=== PATIENT | female | born 1975 | race Caucasian/White ===

== ENCOUNTER 2022-11-25 19:57 | Inpatient (IN) | payer OTHER ==
[~2022-11-25] VITALS: Ht 182.9 cm; Wt 120.8 kg
[2022-11-25] MEDS ORDERED: HYDROCHLOROTHIA25 MG PO (20:35)
[2022-11-25] MEDS ORDERED: LISINOPRIL5 MG PO (20:35)
--- NOTE | 2022-11-25 23:27 | NUR ---
BEDSIDE REPORT RECEIVED FROM ED RN REGINALD, pt ARRIVED TO [place] FROM ED STRETCHER AT THIS TIME. STEADY ON FEET AND ORIENTED TO ROOM, UNMEASURED VOID X1. ADMISSION COMPLETE, IV FLUIDS HUNG AND INFUSING DIRECTED-BRISK BLOOD RETURN NOTED. pt REPORTS PAIN 4/10 AND DESCRIBES TOLERABLE. NO NEEDS OR CONCERNS AT THIS TIME, pt VERBALIZES UNDERSTANDING OF NPO STATUS. CALL LIGHT IN REACH.
--- NOTE | 2022-11-26 00:56 | NUR ---
ROUNDED ON pt, pt AWAKE AND RESTING QUIETLY IN BED. RR EVEN AND UNLABORED, NO NEEDS VERBALIZED WHEN ASKED. CALL LIGHT IN REACH.
--- NOTE | 2022-11-26 01:39 | NUR ---
CALL LIGHT ANSWERED, PRN PAIN MEDICATION GIVEN FOR REPORTED 6/10 ABD PAIN, SEE EMAR. IV FLUIDS RESUMED AND CALL LIGHT IN REACH.
--- NOTE | 2022-11-26 02:04 | NUR ---
rounded on pt to reassess pain following prn pain medication-see previous rn note. pt resting on right side, rr even and unlabored. no distress noted. spo2 mid 90's and hr 91. call light in reach.
--- NOTE | 2022-11-26 04:42 | NUR ---
rounded on pt, pt awake and resting in bed, voided 700mls, steady on feet. pt back in bed, vss and i&o's complete. no acute changes to assessment. cool rag applied to forehead for tolerable 4/10 pain, pt denies need for additional pain medications when offered. prn nausea medication given-see emar. call light in reach. iv fluids continue to infuse as directed.
--- NOTE | 2022-11-26 06:12 | NUR ---
PT ASSISTED UP TO BR TO VOID 100ML YELLOW URINE, REQUESTING PAIN MED FOR UPPER MID AND UPPER LEFT SIDED ABDOMINAL PAIN /, IV PATENT, PT ATTEMPTING TO REST, WITHOUT OUT OTHER REQUESTS.
--- NOTE | 2022-11-26 07:28 | NUR ---
PT RESTING EYES CLOSED AT TIME OF SHIFT REPORT. AWAKE NOW STATES HER ABDOMEN IS UNCOMFORTABLE, BUT MUCH BETTER THAN PRIOR TO MEDS AT 0600. ORAL CARE ITEMS PROVIDED, PT CONTINUES NPO
--- NOTE | 2022-11-26 08:57 | NUR ---
PT CONTINUES RESTING IN BED C/O INCREASED ABDOMINAL PAIN MEDICATED WITH MORPHINE. DR FRENCH IN TO SEE PT
--- NOTE | 2022-11-26 09:33 | NUR ---
PT AGREES SHE IS MOSTLY COMFORTABLE AT THIS TIME. SHADES ARE LOWERED COOL CLOTH TO HEAD. RESTING EYES CLOSED AGREES TO CALL FOR ANY NEEDS
--- NOTE | 2022-11-26 10:02 | NUR ---
PATIENT IN BED RESTING WITH EYES CLOSED, VISITOR IN ROOM. VITALS AND I&O'S CHARTED. CALL LIGHT IN REACH. NO FURTHER NEEDS AT THIS TIME.
--- NOTE | 2022-11-26 10:30 | NUR ---
Spoke with pt. She has a severe headache and is resting with a rag on her head. She states she lives on [address]. She lives in a house without steps, with her spouse and 9 yo daughters. 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 She does not use any DME and denies any financial concerns. Per 9:[address] Leroy, they will advance her diet as tolerated. Pt denies needs and plans on dc to home when she is medically cleared. Pt states rare alcohol use.
--- NOTE | 2022-11-26 10:40 | NUR ---
PT RESTING EYES CLOSED VISITOR PRESENT IN THE ROOM. SHAQUILLE PULLED TO EARLY, ADMINISTERED NOW PT SAYS GOOD BECAUSE I'M FEELING PRETTY NAUSEATED. CONTINUES TO HAVE ABDOMINAL DISCOMFORT, MEDICATED ORDERED
--- NOTE | 2022-11-26 12:10 | NUR ---
PT CONTINUES TO FEEL POORLY EPIGASTRIC PAIN AND NAUSEA. TREATED FOR BOTH ENCOURAGED PT TO REPORT IF PAIN MEDS ARE NOT EFFECTIVE FOR HER. SHE SAID THEY SEEMED TO WORK BETTER LAST NIGHT. FRESH COOL CLOTH TO HEAD PT RESTING EYES CLOSED
--- NOTE | 2022-11-26 12:31 | NUR ---
PT APPEARS TO BE DOZING LEFT UNDISTURBED.
--- NOTE | 2022-11-26 12:48 | NUR ---
ANODIZING LINE OPERATORLOU HOGAN REQUESTED I NOT DISTURB PT AT THIS TIME. SHE IS RESTING AND HAS A ROUGH NIGHT. WILL FOLLOW
--- NOTE | 2022-11-26 14:00 | NUR ---
PT RESTING SOUNDLY APEARS RELAXED AND COMFORTABLE VISITOR PRESENT X1
--- NOTE | 2022-11-26 14:22 | NUR ---
PT AWAKENS AFTER HAVING "A GOOD NAP" STILL FEELS POORLY BUT NO EMESIS, NAUSEA ABATED AT THIS TIME. EPIGASTRIC PAIN PRESENT BUT "NOT BAD" FRESH COOL CLOTH TO FOREHEAD DENIES OTHER NEEDS OF
--- NOTE | 2022-11-26 16:18 | NUR ---
PT AGREES IT IS TIME FOR PAIN MEDICATIONS, AGREES SHE IS A LITTLE BIT BETTER, NAUSEA MED AT SAME TIME. PT STATES SHE IS GOING [place] C[place]ZY PACES THE ROOM FOR AWHILE. PT NOTIFIED SHE CAN WALK LAPS IN THE [place] WEARING A MASK IF SHE LIKES AND SHOWER ITEMS PROVIDED IN CASE SHE WOULD LIKE TO DO THAT. PT RETURNS TO RESTING IN BED AFTER MEDICATIONS. VISITOR REMAINS PRESENT
--- NOTE | 2022-11-26 17:28 | NUR ---
PT RESTING EYES CLOSED. VISITOR REMAINS IN THE ROOM
--- NOTE | 2022-11-26 19:26 | NUR ---
REPORT RECEIVED FROM DAY SHIFT RN. PT LYING IN BED RESTING WITH EYES CLOSED. RESPIRATIONS EVEN. FAMILY IN ROOM. CALL LIGHT IN REACH.
--- NOTE | 2022-11-26 20:19 | NUR ---
EVENING ASSESSMENT COMPLETE. PT REPORTS NAUSEA AND ABD PAIN 5/10. PRN FOR PAIN AND N/V ADMIN PER EMAR. NEW BAG IVF INFUSING WNL. PT REMAINS NPO. PERSONAL FAN PROVIDED. PT DENIES QUESTIONS OR CONCERNS. CALL LIGHT IN REACH.
--- NOTE | 2022-11-26 23:08 | NUR ---
PT RESTING IN BED WITH EYES CLOSED. RESPIRATIONS EVEN. CALL LIGHT IN REACH.
--- NOTE | 2022-11-27 02:00 | NUR ---
PT RESTING IN BED ON RIGHT SIDE. RESPIRATIONS EVEN. IVF INFUSING WNL. CALL LIGHT IN REACH.
--- NOTE | 2022-11-27 02:46 | NUR ---
CALL LIGHT ANSWERED. PT REPORTS NAUSEA AND ABD PAIN 5/10. PRN FOR PAIN AND N/V ADMIN PER EMAR. NEW BAG IVF INFUSING WNL. NO FURTHER NEEDS. CALL LIGHT IN REACH.
--- NOTE | 2022-11-27 06:39 | NUR ---
VS AND I&O OBTAINED. PT REPORTS ABD PAIN 5/10. PRN FOR PAIN AND NAUSEA ADMIN PER EMAR. NO FURTHER NEEDS. CALL LIGHT IN REACH.
--- NOTE | 2022-11-27 08:30 | NUR ---
REPORT RECEIVED FROM NIGHT RN AND PT CARE RESUMED. PT. C/O ABDOMINAL PAIN AND ADMIN PRN MED. IV IS PAINFUL AND LEAKING TO FLUSH. REMOVED WITH CATH INTACT. NEW IV PLACED AFTER 2 ATTEMPTS. ASSESSMENT COMPLETED. BOWEL TONES RARE THROUGHOUT AND PT C/O ADB DISTENSION. MD UPDATED. MEDS ADMIN. WILL CONTINUE TO MONITOR.
--- NOTE | 2022-11-27 09:54 | NUR ---
PATIENT IN BED RESTING AT THIS TIME. PATIENT IND. IN ROOM. AM CARE AND ORAL CARE SUPPLIES AT SINK FOR PATIENT. OFFERED SHOWER, PATIENT SAID SHE WOULD LET ME KNOW WHEN SHE IS READY. VITALS AND I&O'S CHARTED. CALL LIGHT IN REACH. NO FURTHER NEEDS AT THIS TIME.
--- NOTE | 2022-11-27 11:30 | NUR ---
ROUNDING ON PT. BROUGHT ICE CHIPS. SHE REPORTS PAIN IS IMPROVED. AMBULATED SEVERAL LAPS AROUND THE UNIT INDEPENDENTLY AND TOLERATED WELL. LEFT RESTING WITH CALL LIGHT INREACH.
--- NOTE | 2022-11-27 11:40 | NUR ---
Spoke with Cindy. She is walking in the [place]. Denies needs. Has been taking ice chips. Feeling "somewhat" better. No change in plan for CM. Plans on dc to home with family when cleared medically. Pt now IP per Dr. Leroy.
--- NOTE | 2022-11-27 12:29 | NUR ---
PT ALERT, ORIENTED AND LAYING ON R SIDE WITH COOL CLOTH ON FOREHEAD. PT SAID SHE FEELS BETTER TODAY, ROUGH DAY SATURDAY. THIS IS SOMETHING NEW PT STATED SHE HAS NOT EXPERIENCED BEFORE. PT IS VERY PLEASANT UNDER CIRCUMSTANCES. BLESSING AND G.POST GIVEN. WILL FOLLOW
[2022-11-27] MEDS ORDERED: MULTI VITAMIN1 EACH PO (14:07)
--- NOTE | 2022-11-27 14:07 | NUR ---
MED REC COMPLETE
--- NOTE | 2022-11-27 14:49 | NUR ---
FOCUSED ASSESSMENT COMPLETED. BOWEL TONES NOW ACTIVE THROUGHOUT AFTER AMBULATING. SHE REPORTS ABD PAIN IS IMPROVED AFTER PRN MED. GIVEN ICE WATER. WILL CONTINUE TO MONITOR.
--- NOTE | 2022-11-27 19:26 | NUR ---
REPORT RECEIVED FROM DAY SHIFT RN. PT LYING IN BED ON LEFT SIDE WITH EYES CLOSED. RESPIRATIONS EVEN. CALL LIGHT IN REACH.
--- NOTE | 2022-11-27 21:06 | NUR ---
PT AWAKE IN BED. VS AND I&O OBTAINED. EVENING ASSESSMENT COMPLETE. PRN FOR PAIN AND NAUSEA ADMIN FOR 5/10 ABD PAIN. IVF INFUSING WNL. WATER, ICE CHIPS, AND BROTH PROVIDED PER REQUEST. BOWEL TONES HYPOACTIVE. PT REPORTS FLATUS. PT DENIES QUESTIONS OR CONCERNS. CALL LIGHT IN REACH.
--- NOTE | 2022-11-27 22:59 | NUR ---
PT RESTING IN BED WITH EYES CLOSED LYING ON RIGHT SIDE. RESPIRATIONS EVEN. CALL LIGHT IN REACH.
--- NOTE | 2022-11-27 23:24 | NUR ---
call light answered, iv alarming. new bag iv fluids hung and infusing as directed. no additional needs or concerns. primary rn dhara aware, call light in reach.
--- NOTE | 2022-11-28 01:30 | NUR ---
red jello, ice chips and ice water provided. denies other needs at this time.
--- NOTE | 2022-11-28 01:30 | NUR ---
IN TO ROUND ON PT. PT AWAKE IN BED. REPORTS ABD PAIN 12/17. PRN FOR PAIN ADMIN PER EMAR. PRN FOR NAUSEA ADMIN ALSO. PT REQUESTING ANISHA VOSS PROVIDED. PT REPORTS JAZMÍN CLEAR LIQUIDS WELL, DENIES INCREASED PAIN OR NAUSEA WITH LIQUIDS. NO FURTHER NEEDS AT THIS TIME. CALL LIGHT IN REACH.
--- NOTE | 2022-11-28 02:00 | NUR ---
PT CALLED NEAR 0110, STATES SHE IS COLD. NOTED TREMORS, BODY SHAKES. STATING SHE NEEDS HER "TRAZADONE". WARM BLANKET PROVIDED. TOLD PT PRIMARY RN, WHEN BACK TO CHECK PT AT 0115, SHAKING, TREMORS WORSE. STOPPED BLOOD TRANSFUSION, VS COMPLETED, PT FULLY SHAKING, SAYING SHE NEEDS HER TRAZADONE. REQUIRED O2 TO KEEP SATS ABOVE 90 (4L), SATS WERE 70-80'S, HR INCREASED, WELL BLOOD PRESSURE ELEVATED, UNKNOWN IF ACCURATE DUE TO HER TREMEMBLING ARMS. RECTAL TEMP 98.4. DENIES SOB, DENIES NEW BACK PAIN, (BACK PAIN WHEN SHE WAS ADMITTED) NO RASH; NO NAUSEA; PRIMARY RN TO NOTIFY DR MOROCHO.
--- NOTE | 2022-11-28 05:05 | NUR ---
LAB IN ROOM FOR MORNING DRAW. VS AND I&O OBTAINED. ASSESSMENT COMPLETE. PT REPORTS PAIN IS TOLERABLE. SECOND JELLO PROVIDED. PT JAZMÍN CLEAR LIQUIDS WELL. NO FURTHER NEEDS. CLL LIGHT IN REACH.
--- NOTE | 2022-11-28 05:58 | NUR ---
blood administration intervention inadvertly in this pt chart.
--- NOTE | 2022-11-28 06:14 | NUR ---
CALL LIGHT ANSWERED. PT REPORTS ABD PAIN 5/10. PRN FOR PAIN AND NAUSEA ADMIN PER EMAR. NO FURTHER NEEDS.
--- NOTE | 2022-11-28 07:39 | NUR ---
REPORT RECEIVED FROM NIGHT RN AND PT CARE RESUMED.
--- NOTE | 2022-11-28 09:24 | NUR ---
PT. DENIES PAIN OR NAUSEA AND TOLERATING CLEAR DIET. ASSESSMENT COMPLETED AND MEDS ADMIN. PT. UP TO AMBULATE INDEPENDENTLY AROUND THE UNIT.
--- NOTE | 2022-11-28 11:25 | NUR ---
SITTING IN BED VISITING WITN FRIENDS.PATIENT ADMITTED FOR PANCREATITIS. PATIENT HOPES TO GO HOME SOON. PATIENT HAS A SUPPORTIVE FAMILY AND WILL BE HELPFUL NEEDED. PATIENT PLANS TO GO HOME WHEN MEDICALLY CLEARED. PATIENT DOES NOT HAVE ANY DME NEEDS. PER PATIENT SHE DOES NOT HAVE FINANCIAL ISSUES AND IS ABLE TO OBTAIN FOOD AND MEDICATIONS NEEDED.
--- NOTE | 2022-11-28 13:05 | NUR ---
PT ALERT, ORIENTED, LAYING ON R.SIDE CLUTCHING A PILLOW. PT IS VISITING WITH FRIEND, THAT WILL REMAIN FOR DC AND TAKE PT HOME. PT FEELING MUCH BETTER, THANKED ME FOR VISITING, GAVE BLESSING AND WILL FOLLOW
[2022-11-28] MEDS ORDERED: ONDANSETRON ODT4 MG PO (13:27)
== END 2022-11-28 14:02 | disposition home or self-care (01) | DRG 439 ==
LOC: ED 19:57 → MS 20:01
PROVIDERS: ADMIT Family Medicine; ATTEND Family Medicine
DX: K85.90 Acute pancreatitis without necrosis or infection, unspecified (principal); R65.10 Systemic inflammatory response syndrome (SIRS) of non-infectious origin without acute organ dysfunction; Z20.822 Contact with and (suspected) exposure to COVID-19; I10 Essential (primary) hypertension; Z98.891 History of uterine scar from previous surgery; Z79.899 Other long term (current) drug therapy
CPT/HCPCS: 36415; 74177; 80053; 80061; 81003; 83036; 83690; 83735; 84100; 84703; 85025; 87502; A9270; C9113; C9803; J0780; J1650; J2270; J2405; J7030; J7121; Q9967; U0003